=== PATIENT | female | born 1985 | race Caucasian/White ===

== ENCOUNTER 2020-10-25 10:37 | Emergency (ER) | payer OTHER ==
--- NOTE | 2020-10-25 11:20 | Event Note ---
ED Screening Note Date of service: 10/25/20 Time: 11:10 ED Screening Note: 35-year-old -Congol[place] female presents the emergency room reporting that she has blood in the urine decreased appetite nausea vomiting for the last 4 days. Recently found out she is . Recent discontinue taking Percocet that she has been taking for over 2 years. She is 7 para 4. Last menstrual period was either July or August. This initial assessment/diagnostic orders/clinical plan/treatment(s) is/are subject to change based on patients health status, clinical progression and re- assessment by fellow clinical providers in the ED. Further treatment and workup at subsequent clinical providers discretion. Patient/guardian urged not to elope from the ED as their condition may be serious if not clinically assessed and managed. Initial orders include:
[2020-10-25 11:35] LABS: Amorphous Crystals,Urine Few; Bilirubin,Urine NEG (Negative); Blood,Urine NEG (Negative); Color,Urine Yellow (Yellow); Mucus,Urine 1+ /HPF; Urobilinogen,Urine < 2.0 mg/dL (<2.0)
[2020-10-25 11:49] LABS: Basophils % (Auto) 0.5 % (0.0-1.8); Eosinophils % (Auto) 0.6 % (0.0-4.3); Hematocrit 35.4 % (30.3-42.9); Hemoglobin 11.5 gm/dl (10.1-14.3); Lymphocytes # (Auto) 1.8 K/mm3 (1.2-5.4); Lymphocytes % (Auto) 26.9 % (13.4-35.0); Mean Corpuscular HGB Conc 32 % (30-34); Mean Corpuscular Volume 81 fl (79-97); Monocytes # (Auto) 0.5 K/mm3 (0.0-0.8); Monocytes % (Auto) 7.6 % (0.0-7.3); Platelet Count 266 K/mm3 (140-440); Red Cell Distribution Width 16.8 % (13.2-15.2)
[2020-10-25] MEDS ORDERED: SODIUM CHLORIDE 0.9% 1000 ML 1,000 ML IV ONE (11:53)
[2020-10-25] MEDS ORDERED: ONDANSETRON 4 MG/2 ML INJ IV ONE (11:53)
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
[2020-10-25 12:34] LABS: Alanine Aminotransferase 15 units/L (7-56); Albumin 4.6 g/dL (3.9-5); BUN/Creatinine Ratio 15; Blood Urea Nitrogen 6 mg/dL (7-17); Calcium 9.5 mg/dL (8.4-10.2); Hemolysis Index 4
[2020-10-25] MEDS ORDERED: POTASSIUM CHLORIDE ER 20 MEQ TAB PO ONE (13:06)
[2020-10-25] MEDS ORDERED: D5W/0.9% NACL 1,000 ML IV SCH (14:00)
--- NOTE | 2020-10-25 14:03 | Ultrasound Report ---
ULTRASOUND OBSTETRIC INDICATION: First trimester with abdominal pain and nausea with vomiting. TECHNIQUE: Transabdominal. COMPARISON: None available. FINDINGS: GESTATIONAL SAC: Well-defined oval shape and intrauterine in location. YOLK SAC: No significant abnormality. EMBRYO/FETUS: No significant abnormality. - [place] Length = 1.4 cm = 7 weeks, 4 day(s). - Heart Rate = 166 beats per minute. ADNEXA: No significant abnormality. FREE FLUID: None. ADDITIONAL FINDINGS: None. IMPRESSION: 1. Single, living intrauterine with estimated sonographic age of 7 weeks, 4 day(s). Signer Name: Kaushik Leigh MD Signed: 10/25/2020 1:59 PM Workstation Name: [id number]
[2020-10-25 15:51] VITALS: BP 121/68
== END 2020-10-25 15:53 | disposition home or self-care (01) ==
LOC: ED 10:37
DX: O21.8 Other vomiting complicating pregnancy (principal); O36.0111 Maternal care for anti-D [Rh] antibodies, first trimester, fetus 1; O26.891 Other specified pregnancy related conditions, first trimester; E87.6 Hypokalemia; Z79.899 Other long term (current) drug therapy; Z3A.01 Less than 8 weeks gestation of pregnancy
CPT/HCPCS: 36415; 76801; 80053; 81001; 84702; 85025; 86850; 86900; 86901; 96361; 96372; 96374; 99284; J2405; J2790; J7030; J7042

== ENCOUNTER 2021-05-29 11:13 | Emergency (ER) | payer MEDICAID ==
[2021-05-29 11:26] VITALS: BP 151/75
--- NOTE | 2021-05-29 11:36 | Emergency Department Report ---
ED ENT HPI - General Chief complaint: Dental/Oral Stated complaint: TOOTH PAIN Time Seen by Provider: 05/29/21 11:26 Source: patient Mode of arrival: Ambulatory Limitations: No Limitations - History of Present Illness Initial comments: Patient is a 35-year-old female presents emergency room with complaints of cracking her left lower tooth 3 days ago. She states yesterday she began having dental pain. She states this morning she felt like she had some swelling to the left side of her face. She denies any fever, vomiting, difficulty swallowing, difficulty breathing. Patient is currently and states that she is due on June 07, 2021. No past medical history. No allergies to medications. - Related Data Previous Rx's Medication Instructions Recorded Last Taken Type Ondansetron [Zofran Odt] 4 mg PO Q8HR PRN #20 tab.rapdis 10/25/20 Unknown Rx 168/Iron/Folic/Omega3 1 each PO DAILY #30 capsule 10/25/20 Unknown Rx [One-A-Day -1 Softgel] Acetaminophen [Tylenol] 650 mg PO Q8HR PRN #20 capsule 05/29/21 Unknown Rx Chlorhexidine Mouthwash [Peridex] 15 ml MM BID #1 bottle 05/29/21 Unknown Rx Penicillin Vk [Veetids TAB] 500 mg PO QID 7 Days #56 tablet 05/29/21 Unknown Rx Allergies Allergy/AdvReac Type Severity Reaction Status Date / Time No Known Allergies Allergy Unverified 10/25/20 10:47 ED Dental HPI - General Chief complaint: Dental/Oral Stated complaint: TOOTH PAIN Time Seen by Provider: 05/29/21 11:26 Source: patient Mode of arrival: Ambulatory Limitations: Altered Mental Status, Other - Related Data Previous Rx's Medication Instructions Recorded Last Taken Type Ondansetron [Zofran Odt] 4 mg PO Q8HR PRN #20 tab.rapdis 10/25/20 Unknown Rx 168/Iron/Folic/Omega3 1 each PO DAILY #30 capsule 10/25/20 Unknown Rx [One-A-Day -1 Softgel] Acetaminophen [Tylenol] 650 mg PO Q8HR PRN #20 capsule 05/29/21 Unknown Rx Chlorhexidine Mouthwash [Peridex] 15 ml MM BID #1 bottle 05/29/21 Unknown Rx Penicillin Vk [Veetids TAB] 500 mg PO QID 7 Days #56 tablet 05/29/21 Unknown Rx Allergies Allergy/AdvReac Type Severity Reaction Status Date / Time No Known Allergies Allergy Unverified 10/25/20 10:47 ED Review of Systems ROS: Stated complaint: TOOTH PAIN Other details as noted in HPI Comment: All other systems reviewed and negative ED Past Medical Hx - Past Medical History Previous Medical History?: No - Surgical History Past Surgical History?: No - Social History Smoking Status: Never Smoker - Medications Home Medications: Home Medications Medication Instructions Recorded Confirmed Last Taken Type Ondansetron [Zofran Odt] 4 mg PO Q8HR PRN #20 tab.rapdis 10/25/20 Unknown Rx 168/Iron/Folic/Omega3 1 each PO DAILY #30 capsule 10/25/20 Unknown Rx [One-A-Day -1 Softgel] Acetaminophen [Tylenol] 650 mg PO Q8HR PRN #20 capsule 05/29/21 Unknown Rx Chlorhexidine Mouthwash [Peridex] 15 ml MM BID #1 bottle 05/29/21 Unknown Rx Penicillin Vk [Veetids TAB] 500 mg PO QID 7 Days #56 tablet 05/29/21 Unknown Rx ED Physical Exam - General Limitations: No Limitations General appearance: alert, in no apparent distress - Head Head exam: Present: atraumatic, normocephalic - Eye Eye exam: Present: normal appearance - ENT ENT exam: Present: mucous membranes moist, other (left lower tooth is cracked with partial reminants of the tooth present consistent with dental caries, no facial edema, no significant gumline edema, uvula is midline, no uvular edema or deviation, no trismus, no tongue elevation, no muffled voice) ED Course Vital Signs 05/29/21 11:22 Temperature 98.2 F Pulse Rate 62 Respiratory 20 Rate Blood Pressure 151/75 O2 Sat by Pulse 99 Oximetry ED Medical Decision Making - Medical Decision Making Patient is a 35-year-old female presents emergency room with complaints of cracking her left lower tooth 3 days ago. She states yesterday she began having dental pain. She states this morning she felt like she had some swelling to the left side of her face. She denies any fever, vomiting, difficulty swallowing, difficulty breathing. Patient is currently and states that she is due on June 07, 2021. No past medical history. No allergies to medications. on exam: left lower tooth is cracked with partial reminants of the tooth present consistent with dental caries, no facial edema, no significant gumline edema, uvula is midline, no uvular edema or deviation, no trismus, no tongue elevation, no muffled voice. No signs of facial abscess, facial cellulitis, Cornelio's at this time. Patient given prescription for medication. Advised patient Please take medication as prescribed. Follow-up with a dentist. It is important that you follow-up. Return to emergency room for any new or worsening symptoms. Critical care attestation.: If time is entered above; I have spent that time in minutes in the direct care of this critically ill patient, excluding procedure time. ED Disposition Clinical Impression: Dental caries, Cracked tooth, Dentalgia Qualifiers: Weeks of gestation: 39 weeks Qualified Code(s): Z3A.39 - 39 weeks gestation of Disposition: 01 HOME / SELF CARE / HOMELESS Is pt being admited?: No Does the pt Need Aspirin: No Condition: Stable Additional Instructions: Please take medication as prescribed. Follow-up with a dentist. It is import ant that you follow-up. Return to emergency room for any new or worsening symptoms. Prescriptions: Chlorhexidine Mouthwash [Peridex] 15 ml MM BID #1 bottle Acetaminophen [Tylenol] 650 mg PO Q8HR PRN #20 capsule PRN Reason: pain Penicillin Vk [Veetids TAB] 500 mg PO QID 7 Days #56 tablet Referrals: PRIMARY CARE, [Primary Care Provider] - 3-5 Days [facility] [Outside] - 3-5 Days Time of Disposition: 11:34 Print Language: KOSOV[place]
== END 2021-05-29 12:00 | disposition home or self-care (01) ==
LOC: ED 11:13
DX: O99.613 Diseases of the digestive system complicating pregnancy, third trimester (principal); K03.81 Cracked tooth; K02.9 Dental caries, unspecified; Z3A.39 39 weeks gestation of pregnancy
CPT/HCPCS: 99281